=== PATIENT | female | born 1970 | race Caucasian/White ===

== ENCOUNTER 2016-08-25 19:55 | Emergency (ER) | payer MEDICAID, OTHER ==
[~2016-08-25] VITALS: Ht 162.6 cm; Wt 64.0 kg
[~2016-08-25 19:55] MED LIST: MOTRIN; TYLENOL
[2016-08-25 19:57] VITALS: Ht 162.6 cm; Wt 64.0 kg
[2016-08-25] MEDS ORDERED: KETOROLAC 15 MG INJ IV STA (22:36)
[2016-08-25] MEDS ORDERED: SOD CHLORIDE 0.9% 1,000 ML IV STA (22:36)
[2016-08-25] MEDS ORDERED: ACET325T45 PO (22:49)
[2016-08-25 22:52] LABS: ADD SCAN DIFF NO
[2016-08-25 22:53] LABS: BASOPHIL # 0.1 10^3/ul (0.0-0.1); BASOPHILS % 0.6 % (0.0-2.0); EOSINOPHILS # 0.2 10^3/ul (0.0-0.5); EOSINOPHILS % 2.8 % (0.0-7.0); HEMATOCRIT 41.1 % (37.0-47.0); HEMOGLOBIN 14.1 g/dl (12.0-16.0); LYMPHOCYTES # 2.8 10^3/ul (0.8-2.9); LYMPHOCYTES % 34.4 % (15.0-51.0); MEAN CORPUSCULAR HEMOGLOBIN 29.8 pg (29.0-33.0); MEAN CORPUSCULAR HGB CONC 34.3 g/dl (32.0-37.0); MEAN CORPUSCULAR VOLUME 86.9 fl (82.0-101.0); MEAN PLATELET VOLUME 10.7 fl (7.4-10.4); MONOCYTE # 0.8 10^3/ul (0.3-0.9); NEUTROPHIL # 4.3 10^3/ul (1.6-7.5); NEUTROPHILS % 51.8 % (39.0-77.0); PLATELET COUNT 278 10^3/UL (140-415); RED BLOOD COUNT 4.73 10^6/ul (4.20-5.40); RED CELL DISTRIBUTION WIDTH 12.5 % (11.5-14.5); WHITE BLOOD COUNT 8.2 10^3/ul (4.8-10.8)
[2016-08-25 22:56] LABS: ADD UMIC YES; URINE BILIRUBIN (Dip) NEGATIVE (NEGATIVE); URINE BLOOD (Dip) NEGATIVE (NEGATIVE); URINE COLOR LT. YELLOW (YELLOW); URINE GLUCOSE (Dip) NEGATIVE (NEGATIVE); URINE KETONES (Dip) TRACE (NEGATIVE); URINE LEUKOCYTE ESTERASE (Dip) 1+ (NEGATIVE); URINE NITRITE (Dip) NEGATIVE (NEGATIVE); URINE TOTAL PROTEIN (Dip) NEGATIVE (NEGATIVE); URINE UROBILINOGEN (Dip) 0.2 E.U./dL (0.1-1.0)
[2016-08-25] MEDS ORDERED: ALPRAZOLAM 0.25 MG TAB PO ONE (23:00)
--- NOTE | 2016-08-25 23:15 | ERD ---
ER Documentation Chief Complaint Date/Time DATE: 08/25/16 TIME: 23:14 Chief Complaint chest pain x 2 days radaiting to the back HPI 46-year-old woman complains of intermittent tactile fevers and chills 2 days as well as sharp nonexertional nonradiating chest pain. She states she has had the chest pain in the past. She later claimed increased urinary frequency, she has had no vaginal discharge, no exertional pain, no vomiting or diarrhea, no headache or blurry vision. She also states she feels anxious. ROS All systems reviewed and are negative except as per history of present illness. Medications Home Meds Active Scripts Ibuprofen* (Motrin*) 600 Mg Tab, 600 MG PO Q8 for FEVER, #30 TAB Prov:YADIRA PADILLA MD 08/25/16 Cephalexin* (Keflex*) 500 Mg Capsule, 500 MG PO QID for 7 Days, CAP Prov:YADIRA PADILLA MD 08/25/16 Reported Medications Acetaminophen* (Acetaminophen*) 325 Mg Tablet, 325 MG PO Q4H Y for PAIN AND OR ELEVATED TEMP, #30 TAB 08/25/16 Discontinued Reported Medications [Motrin] No Conflict Check 02/13/10 Tylenol 02/13/10 Allergies Allergies: Coded Allergies: No Known Allergies (Verified Allergy, Mild, 08/25/16) PMhx/Soc None History of Surgery: Yes ( X 2, APPENDECTOMY) Anesthesia Reaction: No Hx Neurological Disorder: No Hx Respiratory Disorders: No Hx Cardiac Disorders: Yes (HIGH CHOLESTEROL-NO TREATMENT) Hx Psychiatric Problems: No Hx Miscellaneous Medical Probl: No Hx Alcohol Use: No Hx Substance Use: No Hx Tobacco Use: No Smoking Status: Never smoker FmHx Family History: No diabetes Physical Exam Vitals Vital Signs Date Time Temp Pulse Resp B/P Pulse Ox O2 Delivery O2 Flow Rate FiO2 08/25/16 23:24 56 18 109/63 98 Room Air 08/25/16 22:30 51 18 119/67 99 Room Air 08/25/16 19:57 97.8 98 20 128/73 100 Physical Exam GENERAL: Well-developed, well-nourished, appears anxious HEENT: Moist mucous membranes, pink conjunctiva, no cervical spine tenderness or step-off deformities, no goiter, no jaundice or icterus, extraocular movements intact without pain. No submandibular induration, and no pharyngeal erythema NEURO: Alert and oriented 3, cranial nerves II through XII intact bilaterally, pupils equal round reactive to light, no focal deficits or facial asymmetry, sensation intact distally Strength 5/5 in upper and lower extremities bilaterally CARDIAC: Regular rate and rhythm, no murmurs rubs or gallops LUNGS: Clear bilaterally no wheezing crackles or stridor ABDOMEN: Soft nontender, no guarding, no rigidity, no rebound, no psoas sign no obturator sign. Normoactive bowel sounds SKIN: Warm and dry to touch, no abrasions, contusions, or hematomas, no lacerations, no ecchymosis, no target lesions, and without ulcers EXTREMITIES: No clubbing cyanosis or edema, calves are bilaterally symmetrical, no Homans sign, no popliteal cord sign. Distal pulses equal and bilateral PSYCH: Anxious Result Diagram: 08/25/16223908/25/162239 Results 24 hrs Laboratory Tests Test 08/25/16 22:40 White Blood Count 8.210^3/ul Red Blood Count 4.7310^6/ul Hemoglobin 14.1g/dl Hematocrit 41.1% Mean Corpuscular Volume 86.9fl Mean Corpuscular Hemoglobin 29.8pg Mean Corpuscular Hemoglobin Concent 34.3g/dl Red Cell Distribution Width 12.5% Platelet Count 52708^3/UL Mean Platelet Volume 10.7fl Neutrophils % 51.8% Lymphocytes % 34.4% Monocytes % 10.0% Eosinophils % 2.8% Basophils % 0.6% Nucleated Red Blood Cells % 0.0/100WBC Neutrophils # 4.310^3/ul Lymphocytes # 2.810^3/ul Monocytes # 0.810^3/ul Eosinophils # 0.210^3/ul Basophils # 0.110^3/ul Nucleated Red Blood Cells # 0.010^3/ul Urine Color LT. YELLOW Urine Clarity CLEAR Urine pH 6.0 Urine Specific [place] 1.020 Urine Ketones TRACE Urine Nitrite NEGATIVE Urine Bilirubin NEGATIVE Urine Urobilinogen 0.2 E.U./dL Urine Leukocyte Esterase 1+ Urine Microscopic RBC 0-2/HPF Urine Microscopic WBC >50/HPF Urine Squamous Epithelial Cells MODERATE Urine Bacteria FEW Urine Hemoglobin NEGATIVE Urine Glucose NEGATIVE% Urine Total Protein NEGATIVE Sodium Level 137mmol/L Potassium Level 3.9mmol/L Chloride Level 104mmol/L Carbon Dioxide Level 24mmol/L Anion Gap 13 Blood Urea Nitrogen 11mg/dl Creatinine 0.68mg/dl Glucose Level 100mg/dl Calcium Level 10.2mg/dl Total Bilirubin 0.3mg/dl Direct Bilirubin 0.00mg/dl Indirect Bilirubin 0.3mg/dl Aspartate Amino Transf (AST/SGOT) 182IU/L Alanine Aminotransferase (ALT/SGPT) 374IU/L Alkaline Phosphatase 426IU/L Troponin I < 0.012ng/ml Total Protein 10.0g/dl Albumin 4.5g/dl Globulin 5.50g/dl Albumin/Globulin Ratio 0.81 Lipase 162U/L Current Medications Medications (Trade) Dose Ordered Sig/Celsa Route PRN Reason Start Time Stop Time Status Last Admin Dose Admin Sodium Chloride (NS) 1,000 ml @ 1,000 mls/hr Q1H STAT IV 08/25/16 22:36 08/25/16 23:34 DC 08/25/16 22:49 Ketorolac Tromethamine (Toradol) 15 mg ONCE STAT IV 08/25/16 22:36 08/25/16 22:37 DC 08/25/16 22:49 Alprazolam (Xanax) 0.5 mg ONCE ONCE PO 08/25/16 23:00 08/25/16 23:01 DC 08/25/16 22:49 Cephalexin (Keflex) 500 mg ONCE ONCE PO 08/25/16 23:30 08/25/16 23:31 DC 08/25/16 23:27 Procedures/MDM IV line was established patient was placed on director of cardiac cath lab rhythm strip revealed a sinus rhythm at about 80 bpm with upright P and T waves. Patient was afebrile. EKG performed, read by me revealed a normal sinus rhythm at 78 bpm, normal axis , narrow QRS complex, no concerning ST elevations or depressions noted. CBC and electrolytes were unremarkable, liver function tests revealed mild transaminitis, troponin was negative. Urinalysis was positive for infection. I treated the patient with 1 L normal saline intravenously, Toradol 50 mg IV, and alprazolam 0.5 mg p.o. with good effect. For early UTI treated here with cephalexin 500 mg p.o. Differential diagnoses considered, included but not limited to acute coronary syndrome, pulmonary embolism, aortic dissection, abdominal aortic aneurysm, sepsis, stroke, meningitis, encephalitis, pneumonia, appendicitis, cholecystitis , bowel obstruction, pyelonephritis, nephrolithiasis, cystitis, as well as metabolic, hematologic, and electrolyte abnormalities. As well as abscess, cellulitis, fractures, and dislocations. Patient feels much better at this time, and vital signs are normal, symptoms have improved. I did give strict instructions to return to the ED if symptoms continue or worsen, patient will otherwise follow-up with primary care physician. Patient understood instructions and agreed to plan. Departure Diagnosis: Primary Impression: Chest pain Chest pain type: unspecified Qualified Code: R07.9 - Chest pain, unspecified type Additional Impressions: Hypertension Hypertension type: essential hypertension Qualified Code: I10 - Essential hypertension UTI (urinary tract infection) Urinary tract infection type: acute cystitis Hematuria presence: without hematuria Qualified Code: N30.00 - Acute cystitis without hematuria Condition: YADIRA Pinto MD August 25, 2016 23:15
[2016-08-25 23:19] LABS: BACTERIA,URINE FEW; SQUAMOUS EPITHELIAL CELL,UR MODERATE; URINE RBCS 0-2 /HPF (0)
[2016-08-25] MEDS ORDERED: CEPH-443 PO (23:21)
[2016-08-25] MEDS ORDERED: IBUP-1542 PO (23:21)
[2016-08-25 23:24] VITALS: BP 109/63; PULSE 56; RESP 18
[2016-08-25] MEDS ORDERED: CEPHALEXIN 500 MG CAP PO ONE (23:30)
[2016-08-26 00:08] LABS: ALANINE AMINOTRANSFERASE 374 IU/L (13-69); ALBUMIN 4.5 g/dl (3.3-4.9); ALBUMIN/GLOBULIN RATIO 0.81; ALKALINE PHOSPHATASE 426 IU/L (42-121); ANION GAP 13 (8-16); ASPARTATE AMINO TRANSFERASE 182 IU/L (15-46); BILIRUBIN,INDIRECT 0.3 mg/dl (0-1.1); BILIRUBIN,TOTAL 0.3 mg/dl (0.2-1.3); BLOOD UREA NITROGEN 11 mg/dl (7-20); CALCIUM 10.2 mg/dl (8.4-10.2); CARBON DIOXIDE 24 mmol/L (21-31); CHLORIDE 104 mmol/L (97-110); CREATININE 0.68 mg/dl (0.44-1.00); GLUCOSE 100 mg/dl (70-220); POTASSIUM 3.9 mmol/L (3.5-5.1); SODIUM 137 mmol/L (135-144)
--- NOTE | 2016-08-26 00:13 | RADRPT ---
PROCEDURE: XR Chest. CLINICAL INDICATION: Abdominal Pain TECHNIQUE: Single frontal view of the chest was obtained. COMPARISON: None available FINDINGS: The cardiomediastinal silhouette is normal size. Pulmonary vasculature is within normal limits. Th ere is elevation of the left hemidiaphragm. There is left base atelectasis.. No signs of pleural fluid or pneumothorax are seen. The osseous structures and soft tissues are unre markable. IMPRESSION: Mild elevation of the left hemidiaphragm. Left base atelectasis. No definite consolidation. RPTAT: HBST .Skinny Dover MD, Date Time Electronically viewed and signed by .Skinny Dover MD, on 08/26/2016 00:13 .T/
[2016-08-26 00:20] LABS: TROPONIN-I < 0.012 ng/ml (0.00-0.12)
== END 2016-08-25 23:34 | disposition home or self-care (01) ==
LOC: E/R 19:55
DX: R07.9 Chest pain, unspecified (principal); I10 Essential (primary) hypertension; N30.00 Acute cystitis without hematuria
CPT/HCPCS: 36415; 71010; 80053; 81001; 83690; 84484; 85025; 96374; J1885; J7030; Z7502; Z7610; 81003

== ENCOUNTER 2016-11-04 09:05 | Emergency (ER) | payer OTHER ==
[~2016-11-04] VITALS: Ht 157.5 cm; Wt 64.0 kg
[~2016-11-04 09:05] MED LIST changes: +ACET325T45 PO; +CEPH-443 PO; +IBUP-1542 PO; -MOTRIN; -TYLENOL
[2016-11-04 09:08] VITALS: Ht 157.5 cm; Wt 64.0 kg
[2016-11-04 09:53] LABS: ADD SCAN DIFF NO
[2016-11-04 09:56] LABS: BASOPHIL # 0.1 10^3/ul (0.0-0.1); BASOPHILS % 0.4 % (0.0-2.0); EOSINOPHILS # 0.1 10^3/ul (0.0-0.5); EOSINOPHILS % 0.9 % (0.0-7.0); HEMATOCRIT 41.2 % (37.0-47.0); HEMOGLOBIN 13.9 g/dl (12.0-16.0); LYMPHOCYTES # 2.5 10^3/ul (0.8-2.9); MEAN CORPUSCULAR HEMOGLOBIN 29.3 pg (29.0-33.0); MEAN CORPUSCULAR HGB CONC 33.7 g/dl (32.0-37.0); MEAN CORPUSCULAR VOLUME 86.9 fl (82.0-101.0); MEAN PLATELET VOLUME 10.9 fl (7.4-10.4); MONOCYTES % 8.6 % (0.0-11.0); NEUTROPHIL # 7.7 10^3/ul (1.6-7.5); NEUTROPHILS % 67.8 % (39.0-77.0); PLATELET COUNT 267 10^3/UL (140-415); RED BLOOD COUNT 4.74 10^6/ul (4.20-5.40); RED CELL DISTRIBUTION WIDTH 13.1 % (11.5-14.5); WHITE BLOOD COUNT 11.3 10^3/ul (4.8-10.8)
[2016-11-04 10:12] LABS: ALBUMIN/GLOBULIN RATIO 0.98; BILIRUBIN,INDIRECT 0.9 mg/dl (0-1.1); BILIRUBIN,TOTAL 0.9 mg/dl (0.2-1.3); CALCIUM 10.1 mg/dl (8.4-10.2); CREATININE 0.69 mg/dl (0.44-1.00); TOTAL PROTEIN 10.1 g/dl (6.1-8.1)
[2016-11-04 10:23] LABS: ADD UMIC YES; UR ASCORBIC ACID NEGATIVE (NEGATIVE); UR BACTERIA FEW /HPF (NONE SEEN); UR BILIRUBIN (Dip) NEGATIVE (NEGATIVE); UR BLOOD (Dip) NEGATIVE (NEGATIVE); UR CLARITY CLOUDY (CLEAR); UR COLOR AMBER (YELLOW); UR GLUCOSE (Dip) NEGATIVE (NEGATIVE); UR KETONES (Dip) 1+ mg/dL (NEGATIVE); UR LEUKOCYTE ESTERASE (Dip) 1+ Leu/ul (NEGATIVE); UR MUCUS MODERATE /HPF (NONE SEEN); UR NITRITE (Dip) NEGATIVE (NEGATIVE); UR RBC 4 /HPF (0-5); UR SPECIFIC GRAVITY (Dip) 1.028 (1.003-1.030); UR SQUAMOUS EPITHELIAL CELL MANY /HPF (FEW); UR TOTAL PROTEIN (Dip) 2+ mg/dl (NEGATIVE); UR UROBILINOGEN (Dip) 1+ mg/dL (NEGATIVE)
--- NOTE | 2016-11-04 10:45 | RADRPT ---
PROCEDURE: CT Abdomen and Pelvis without contrast. CLINICAL INDICATION: Abdominal pain. Fever. TECHNIQUE: CT scan of the abdomen and pelvis without contrast was performed on a multi-slice [facility] without intravenous contrast. Coronal and sagittal reformatted images were obtained from the axial source images. Images were reviewed on a high-resolution PACS workstation. One or more of the following does reduction techniques were used: Automated exposure control; adjustment of the mA an d/or kV according to patient size; use of the aorta of reconstruction technique. The total exam CTD I equals 9.6 mGy and the total exam DLP equals 487.77 mGy-cm. COMPARISON: None available. FINDINGS: The lung bases are clear. Heart size is normal, and there is no evidence of pericardial thickening or effusion. The liver, spleen, and pancreas are normal given limitations of a noncontrast CT examination. The g allbladder is normal. The adrenal glands are normal. The kidneys without renal calculus or hydronephrosis. The aorta is of normal caliber. There is no retroperitoneal lymph node enlargment. There is no evidence of large or small bowel obstruction there is scattered colonic diverticula of t he sigmoid and descending colon. There is focal wall thickening and inflammatory change at the leve l of the proximal sigmoid colon consistent with diverticulitis. There is trace fluid in the left per icolic gutter. There is evin fluid collection. No other areas of inflammatory change identified. A single cecal diverticulum was also noted. The appendix is not clearly identified, however, there is no secondary evidence of acute appendicitis The uterus is present No enlarged pelvic sidewall lymph nodes are seen. The bladder is decompressed and collapsed. There is trace pelvic free fluid which may be reactive or may be physiologic. The inguinal regions are unremarkable. The bones are intact. IMPRESSION: 1. Diverticulitis of the proximal sigmoid colon. Trace fluid in the left pericolic gutter and pelv is is likely reactive in nature. There is no drainable fluid collection or evin abscess. RPTAT: KK .Roel Dorman MD, MD Date Time Electronically viewed and signed by .Roel Dorman MD, MD on 11/04/2016 10:44 .B/
[2016-11-04] MEDS ORDERED: DOCU-144 PO (11:41)
[2016-11-04] MEDS ORDERED: METR500T PO (11:41)
[2016-11-04] MEDS ORDERED: ONDA4TAB14 PO (11:44)
[2016-11-04] MEDS ORDERED: CIPR500T4 PO (11:44)
[2016-11-04 11:50] VITALS: BP 133/74; PULSE 77; RESP 16
--- NOTE | 2016-11-04 12:09 | ERD ---
ER Documentation Chief Complaint Date/Time DATE: 11/04/16 TIME: 12:05 Chief Complaint Complains of abdominal pain since yesterday HPI 46-year-old female patient with no significant past medical history presents the ED complaining of abdominal pain that started 2 days ago. Reports that her last bowel movement was yesterday. Describes the pain as achy and rates it a 5 out of 10. Denies any decreased appetite. Denies any fever, chills, chest pain , shortness of breath, constipation, diarrhea, vomiting. Denies any dysuria, urgency, frequency, vaginal discharge or vaginal bleeding. ROS All systems reviewed and are negative except as per history of present illness. Medications Home Meds Active Scripts Ondansetron (Ondansetron Odt) 4 Mg Tab.rapdis, 4 MG PO Q6H Y for NAUSEA AND/OR VOMITING, #10 TAB Prov:JUANIS CRAIN PA-C 11/04/16 Ciprofloxacin Hcl* (Ciprofloxacin Hcl*) 500 Mg Tablet, 500 MG PO BID for 10 Days , TAB Prov:JUANIS CRAIN PA-C 11/04/16 Docusate Sodium* (Colace*) 100 Mg Capsule, 100 MG PO TID, #30 CAP Prov:JUANIS CRAIN PA-C 11/04/16 Metronidazole* (Flagyl*) 500 Mg Tablet, 500 MG PO TID for 10 Days, TAB Prov:JUANIS CRAIN PA-C 11/04/16 Ibuprofen* (Motrin*) 600 Mg Tab, 600 MG PO Q8 for FEVER, #30 TAB Prov:YADIRA PADILLA MD 08/25/16 Cephalexin* (Keflex*) 500 Mg Capsule, 500 MG PO QID for 7 Days, CAP Prov:YADIRA PADILLA MD 08/25/16 Reported Medications Acetaminophen* (Acetaminophen*) 325 Mg Tablet, 325 MG PO Q4H Y for PAIN AND OR ELEVATED TEMP, #30 TAB 08/25/16 Allergies Allergies: Coded Allergies: No Known Allergies (Verified Allergy, Mild, 11/04/16) PMhx/Soc History of Surgery: Yes ( X 2, APPENDECTOMY) Anesthesia Reaction: No Hx Neurological Disorder: No Hx Respiratory Disorders: No Hx Cardiac Disorders: Yes (HIGH CHOLESTEROL-NO TREATMENT) Hx Psychiatric Problems: No Hx Miscellaneous Medical Probl: No Hx Alcohol Use: No Hx Substance Use: No Hx Tobacco Use: No Smoking Status: Never smoker Physical Exam Vitals Vital Signs Date Time Temp Pulse Resp B/P Pulse Ox O2 Delivery O2 Flow Rate FiO2 11/04/16 11:50 77 16 133/74 99 Room Air 11/04/16 09:08 98.7 72 20 135/59 98 Physical Exam Const: [id number], well-nourished. In no acute distress. Head: Atraumatic, normocephalic Eyes: Normal Conjunctiva without injection. No purulent discharge. ENT: Normal external ear, nose. Moist oropharynx without tonsillar exudates. Non -erythematous pharynx. Uvula midline. No drooling. No trismus. Neck: No cervical midline tenderness. Full range of motion. No meningismus. No cervical lymphadenopathy. No JVD. Resp: Clear to auscultation bilaterally. No wheezing, rhonchi, rales, or crackles. No accessory muscle use. No retractions. Cardio: Regular rate and rhythm. No murmurs, rubs or gallops. Abd: Soft, right and left lower quadrant tenderness, non distended. Normal bowel sounds. No palpable masses. No rebound tenderness. No guarding. Negative McBurney's point. Negative psoas sign. Negative obturator sign. Skin: No petechiae or rashes Back: No midline tenderness. No CVA tenderness. Ext: No cyanosis, or edema. Neur: Awake and alert. Normal gait. Normal coordination. Psych: Normal Mood and Affect Results 24 hrs Laboratory Tests Test 11/04/16 09:41 White Blood Count 11.310^3/ul Red Blood Count 4.7410^6/ul Hemoglobin 13.9g/dl Hematocrit 41.2% Mean Corpuscular Volume 86.9fl Mean Corpuscular Hemoglobin 29.3pg Mean Corpuscular Hemoglobin Concent 33.7g/dl Red Cell Distribution Width 13.1% Platelet Count 18076^3/UL Mean Platelet Volume 10.9fl Neutrophils % 67.8% Lymphocytes % 22.0% Monocytes % 8.6% Eosinophils % 0.9% Basophils % 0.4% Nucleated Red Blood Cells % 0.0/100WBC Neutrophils # 7.710^3/ul Lymphocytes # 2.510^3/ul Monocytes # 1.010^3/ul Eosinophils # 0.110^3/ul Basophils # 0.110^3/ul Nucleated Red Blood Cells # 0.010^3/ul Urine Color CONCHA Urine Clarity CLOUDY Urine pH 5.0 Urine Specific [place] 1.028 Urine Ketones 1+mg/dL Urine Nitrite NEGATIVEmg/dL Urine Bilirubin NEGATIVEmg/dL Urine Urobilinogen 1+mg/dL Urine Leukocyte Esterase 1+Arun/ul Urine Microscopic RBC 4/HPF Urine Microscopic WBC 29/HPF Urine Squamous Epithelial Cells MANY/HPF Urine Bacteria FEW/HPF Urine Mucus MODERATE/HPF Urine Hemoglobin NEGATIVEmg/dL Urine Glucose NEGATIVEmg/dL Urine Total Protein 2+mg/dl Sodium Level 137mmol/L Potassium Level 4.0mmol/L Chloride Level 104mmol/L Carbon Dioxide Level 23mmol/L Anion Gap 14 Blood Urea Nitrogen 9mg/dl Creatinine 0.69mg/dl Glucose Level 88mg/dl Calcium Level 10.1mg/dl Total Bilirubin 0.9mg/dl Direct Bilirubin 0.00mg/dl Indirect Bilirubin 0.9mg/dl Aspartate Amino Transf (AST/SGOT) 106IU/L Alanine Aminotransferase (ALT/SGPT) 217IU/L Alkaline Phosphatase 377IU/L Total Protein 10.1g/dl Albumin 5.0g/dl Globulin 5.10g/dl Albumin/Globulin Ratio 0.98 Lipase 263U/L Procedures/MDM This is a 46-year-old female patient with no significant past medical history presents the ED complaining of lower abdominal pain started 2 days ago. Patient is afebrile and nontoxic-appearing. Patient was further worked up with CBC, CMP, lipase, UA, urine , CT of the abdomen and pelvis without contrast. Patient's pain improved after taking Tylenol. CBC: Leukocytosis of 11.3. No e/o anemia. CMP: No e/o severe acidosis, alkalosis, renal failure, diabetic ketoacidosis, transaminitis noted Lipase within normal limits. Urine: 1+ leukocyte esterase with 29 WBC, no nitrites, no hematuria. Urine : Negative PROCEDURE: CT Abdomen and Pelvis without contrast. CLINICAL INDICATION: Abdominal pain. Fever. TECHNIQUE: CT scan of the abdomen and pelvis without contrast was performed on a multi-slice CT scanner without intravenous contrast. Coronal and sagittal reformatted images were obtained from the axial source images. Images were reviewed on a high-resolution PACS workstation. One or more of the following does reduction techniques were used: Automated exposure control; adjustment of the mA and/or kV according to patient size; use of the aorta of reconstruction technique. The total exam CTDI equals 9.6 mGy and the total exam DLP equals 487.77 mGy-cm. COMPARISON: None available. FINDINGS: The lung bases are clear. Heart size is normal, and there is no evidence of pericardial thickening or effusion. The liver, spleen, and pancreas are normal given limitations of a noncontrast CT examination. The gallbladder is normal. The adrenal glands are normal. The kidneys without renal calculus or hydronephrosis. The aorta is of normal caliber. There is no retroperitoneal lymph node enlargment. There is no evidence of large or small bowel obstruction there is scattered colonic diverticula of the sigmoid and descending colon. There is focal wall thickening and inflammatory change at the level of the proximal sigmoid colon consistent with diverticulitis. There is trace fluid in the left pericolic gutter. There is evin fluid collection. No other areas of inflammatory change identified. A single cecal diverticulum was also noted. The appendix is not clearly identified, however, there is no secondary evidence of acute appendicitis The uterus is present No enlarged pelvic sidewall lymph nodes are seen. The bladder is decompressed and collapsed. There is trace pelvic free fluid which may be reactive or may be physiologic. The inguinal regions are unremarkable. The bones are intact. IMPRESSION: 1. Diverticulitis of the proximal sigmoid colon. Trace fluid in the left pericolic gutter and pelvis is likely reactive in nature. There is no drainable fluid collection or evin abscess. Patient's CT showed diverticulitis of sigmoid colon with no signs of perforation or abscess. Patient also has a possible urinary tract infection. A differential diagnosis considered includes but is not limited to gastritis, GERD, peptic ulcer disease, cholecystitis, choledocholithiasis, cholangitis, pancreatitis, appendicitis, bowel obstruction, ileus, volvulus, nephrolithiasis , pyelonephritis, hepatitis, perforated viscus, abdominal hernia, acute abdomen , mesenteric ischemia or other emergent conditions. Low suspicion for acute/ surgical abdomen at this time. This case was discussed with my supervising physician, Dr. Elam who agreed with the management and discharge plan. Discharge medications: Zofran, Ciprofloxacin, Metronidazole, Colace Follow up with primary care physician in 1-2 days for referral to dentistry professor. Instructed patient to return to the ED sooner for any worsening symptoms. Patient's questions were answered. Patient understood and agreed with discharge plan. Patient discharged stable. Departure Diagnosis: Primary Impression: Abdominal pain Abdominal location: lower abdomen, unspecified Qualified Code: R10.30 - Lower abdominal pain Condition: Stable Patient Instructions: Understanding Diverticulosis and Diverticulitis, Urinary Tract Infections in Women Referrals: [facility] YOU HAVE RECEIVED A MEDICAL SCREENING EXAM AND THE RESULTS INDICATE THAT YOU DO NOT HAVE A CONDITION THAT REQUIRES URGENT TREATMENT IN THE EMERGENCY DEPARTMENT. FURTHER EVALUATION AND TREATMENT OF YOUR CONDITION CAN WAIT UNTIL YOU ARE SEEN IN YOUR DOCTORS OFFICE WITHIN THE NEXT 1-2 DAYS. IT IS YOUR RESPONSIBILITY TO MAKE AN APPOINTMENT FOR FOLOW-UP CARE. IF YOU HAVE A PRIMARY DOCTOR --you should call your primary doctor and schedule an appointment IF YOU DO NOT HAVE A PRIMARY DOCTOR YOU CAN CALL OUR PHYSICIAN REFERRAL HOTLINE AT IF YOU CAN NOT AFFORD TO SEE A PHYSICIAN YOU CAN CHOSE FROM THE FOLLOWING [facility] [address] [facility] [address] [facility] [address] [facility] [address] [facility] [address] [facility] [address] [facility]. [address] [facility] YOU HAVE RECEIVED A MEDICAL SCREENING EXAM AND THE RESULTS INDICATE THAT YOU DO NOT HAVE A CONDITION THAT REQUIRES URGENT TREATMENT IN THE EMERGENCY DEPARTMENT. FURTHER EVALUATION AND TREATMENT OF YOUR CONDITION CAN WAIT UNTIL YOU ARE SEEN IN YOUR DOCTORS OFFICE WITHIN THE NEXT 1-2 DAYS. IT IS YOUR RESPONSIBILITY TO MAKE AN APPOINTMENT FOR FOLOW-UP CARE. IF YOU HAVE A PRIMARY DOCTOR --you should call your primary doctor and schedule and appointment IF YOU DO NOT HAVE A PRIMARY DOCTOR YOU CAN CALL OUR PHYSICIAN REFERRAL HOTLINE AT . IF YOU CAN NOT AFFORD TO SEE A PHYSICIAN YOU CAN CHOSE FROM THE FOLLOWING [facility] INSTITUTIONS: [facility] [address] [place] [address] [facility] [address] [place] [address] [facility] [address] [place] [address] [facility] Additional Instructions: Call your primary care doctor TOMORROW for an appointment during the next 2-3 days for a referral to a dentistry professor. See the doctor sooner or return here if your condition worsens before your appointment time. JUANIS CRAIN PA-C Nov 04, 2016 12:09 JUANIS CRAIN PA-C Nov 04, 2016 12:09
== END 2016-11-04 11:51 | disposition home or self-care (01) ==
LOC: FTE 09:05
DX: R10.32 Left lower quadrant pain (principal); R10.31 Right lower quadrant pain
CPT/HCPCS: 36415; 74176; 80053; 81001; 83690; 85025; Z7502

== ENCOUNTER 2018-06-14 23:23 | Emergency (ER) | payer SELFPAY ==
[~2018-06-14] VITALS: Ht 160 cm; Wt 65.9 kg
[~2018-06-14 23:23] MED LIST changes: +CIPR500T4 PO; +DOCU-144 PO; +METR500T PO; +ONDA4TAB14 PO
[2018-06-14 23:59] VITALS: BP 128/67; PULSE 57; RESP 17; Ht 160 cm; Wt 65.9 kg
== END 2018-06-15 01:40 | disposition left against medical advice (07) ==
LOC: FTE 23:23
DX: Z53.21 Procedure and treatment not carried out due to patient leaving prior to being seen by health care provider (principal)

== ENCOUNTER 2018-07-25 17:40 | Emergency (ER) | payer OTHER ==
[~2018-07-25] VITALS: Wt 64.8 kg
[2018-07-25 17:42] VITALS: BP 112/64; PULSE 60; RESP 16
[2018-07-25] MEDS ORDERED: NAPR-985 PO (20:36)
--- NOTE | 2018-07-25 23:52 | ERD ---
ER Documentation Chief Complaint Chief Complaint RT SIDE PAIN AND SOB S/P BIOPSEY ON 07/17/18 HPI [id number]-year-old woman complaining of pain to the right upper lateral abdomen status post biopsy of the liver about 1 week ago. She denies recent weight loss, no fevers or chills, no chest pain or shortness of breath. She is unsure as why she underwent liver biopsy but is scheduled to follow-up with her PMD for results and explanation ROS All systems reviewed and are negative except as per history of present illness. Medications Home Meds Active Scripts Naproxen* (Naprosyn*) 500 Mg Tablet, 500 MG PO BID PRN for PAIN AND/OR INFLAMMATION, #30 TAB Prov:YADIRA PADILLA MD 07/25/18 Ondansetron (Ondansetron Odt) 4 Mg Tab.rapdis, 4 MG PO Q6H PRN for NAUSEA AND/OR VOMITING, #10 TAB Prov:JUANIS CRAIN PA-C 11/04/16 Ciprofloxacin Hcl* (Ciprofloxacin Hcl*) 500 Mg Tablet, 500 MG PO BID for 10 Days, TAB Prov:JUANIS CRAIN PA-C 11/04/16 Docusate Sodium* (Colace*) 100 Mg Capsule, 100 MG PO TID, #30 CAP Prov:JUANIS CRAIN PA-C 11/04/16 Metronidazole* (Flagyl*) 500 Mg Tablet, 500 MG PO TID for 10 Days, TAB Prov:JUANIS CRAIN PA-C 11/04/16 Ibuprofen* (Motrin*) 600 Mg Tab, 600 MG PO Q8 for FEVER, #30 TAB Prov:YADIRA PADILLA MD 08/25/16 Cephalexin* (Keflex*) 500 Mg Capsule, 500 MG PO QID for 7 Days, CAP Prov:YADIRA PADILLA MD 08/25/16 Reported Medications Acetaminophen* (Acetaminophen*) 325 Mg Tablet, 325 MG PO Q4H PRN for PAIN AND OR ELEVATED TEMP, #30 TAB 08/25/16 Allergies Allergies: Coded Allergies: No Known Allergies (Verified Allergy, Mild, 11/04/16) PMhx/Soc History of Surgery: Yes ( X 2, APPENDECTOMY) Anesthesia Reaction: No Hx Neurological Disorder: No Hx Respiratory Disorders: No Hx Cardiac Disorders: Yes (HIGH CHOLESTEROL-NO TREATMENT) Hx Psychiatric Problems: No Hx Miscellaneous Medical Probl: No Hx Alcohol Use: No Hx Substance Use: No Hx Tobacco Use: No Smoking Status: Never smoker FmHx Family History: No diabetes Physical Exam Vitals Vital Signs Date Temp Pulse Resp B/P (MAP) Pulse Ox O2 O2 Flow FiO2 Time Delivery Rate 07/25/18 98.2 61 12 138/73 100 Room Air 19:47 (94) 07/25/18 98.6 60 16 112/64 99 17:42 (80) Physical Exam GENERAL: Well-developed, well-nourished, well-hydrated, in no apparent distress, looks nontoxic in appearance HEENT: Moist mucous membranes, pink conjunctiva, no cervical spine tenderness or step-off deformities, no goiter, no jaundice or icterus, extraocular movements intact without pain. No submandibular induration, and no pharyngeal erythema NEURO: Alert and oriented 3, cranial nerves II through XII intact bilaterally, pupils equal round reactive to light, no focal deficits or facial asymmetry, sensation intact distally Strength 5/5 in upper and lower extremities bilaterally CARDIAC: Regular rate and rhythm, no murmurs rubs or gallops LUNGS: Clear bilaterally no wheezing crackles or stridor ABDOMEN: Soft nontender, no guarding, no rigidity, no rebound, no psoas sign no obturator sign. Normoactive bowel sounds SKIN: Warm and dry to touch, no abrasions, contusions, or hematomas, no lacerations, no ecchymosis, no target lesions, and without ulcers EXTREMITIES: No clubbing cyanosis or edema, calves are bilaterally symmetrical, no Homans sign, no popliteal cord sign. Distal pulses equal and bilateral PSYCH: Normal affect without agitation or irritability Procedures/MDM One AP view of the chest performed, read by me reveals no acute infiltrates, normal mediastinum, sharp costophrenic and cardiac borders, no air under the diaphragm. Otherwise unremarkable chest x-ray. Ultrasound liver was performed, no hematoma or injury noted. Please refer to radiologist dictation for full report. For pain I administered Toradol 30 mg IM x1. Differential diagnoses considered, included but not limited to acute coronary syndrome, pulmonary embolism, aortic dissection, abdominal aortic aneurysm, sepsis, stroke, meningitis, encephalitis, pneumonia, appendicitis, cholecystitis, bowel obstruction, pyelonephritis, nephrolithiasis, cystitis, as well as metabolic, hematologic, and electrolyte abnormalities. As well as abscess, cellulitis, fractures, and dislocations. Patient feels much better at this time, and vital signs are normal, symptoms have improved. I did give strict instructions to return to the ED if symptoms continue or worsen, patient will otherwise follow-up with primary care physician. Patient understood instructions and agreed to plan. Disclaimer: Inadvertent spelling and grammatical errors are likely due to EHR/dictation software use and do not reflect on the overall quality of patient care. Also, please note that the electronic time recorded on this note does not necessarily reflect the actual time of the patient encounter. Departure Diagnosis: Primary Impression: Postoperative pain Ruled Out: Abdominal pain Condition: Good Patient Instructions: Post Op Wound Check, Pain YADIRA PADILLA MD Jul 25, 2018 23:52
== END 2018-07-25 20:46 | disposition home or self-care (01) ==
LOC: E/R 17:40
DX: G89.18 Other acute postprocedural pain (principal); R06.02 Shortness of breath
CPT/HCPCS: 71045; 76705; Z7502